=== PATIENT | male | born 2000 | race Caucasian/White ===

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

== ENCOUNTER 2021-04-13 15:31 | Emergency (ER) | payer OTHER, SELFPAY ==
[2021-04-13 15:37] VITALS: BP 144/56; PULSE 65; RESP 16; TEMP 37.2; O2SAT 100
--- NOTE | 2021-04-13 16:24 | ED.GENADUL_ITS ---
Discharge Plan Disposition Patient Disposition: HOME Condition: Stable Discharge Details Clinical Impression: Lumbago, Thoracic back sprain Primary Care Provider: Mariano Colon ED Provider: Tanya Rodriguez Home Meds and New Rx's Prescriptions: New cyclobenzaprine 10 mg tablet 10 mg PO TID PRN (Reason: muscle spasm) Qty: 10 RF: 0 lidocaine 5 % adhesive patch,medicated 1 patch topical DAILY PRN (Reason: muscle spasm) Qty: 15 RF: 0 No Action ibuprofen 200 mg capsule 200 mg PO Q6H PRNRF: 0 albuterol sulfate [ProAir HFA] 90 mcg/actuation HFA aerosol inhaler 2 puff Inhalation Q4H PRN Qty: 8.5 RF: 1 Discharge Instructions Instructions: Low Back Strain (ED), Back Pain (ED) Additional Instructions: The x-rays today show mild scoliosis, but this could be related to positioning during exam. No evidence of disc abnormality or fracture. Spine is otherwise well aligned. Urinalysis was normal. Alternate ice and heat, try massage and chiropractor. Please take tylenol and ibuprofen every 4-6 hours as needed for pain and swelling,. Use muscle relaxers as directed. return to ED for any loss of bowel or bladder control, worsening shortness of breath, fever, cough or concerns. Follow up with PCP or urgent care in 3-5 days if needed. Stand Alone Forms: School Release Referrals: Mariano Colon MD [Primary Care Provider] - 5 days Medical Decision Making 20 year old male presents with Thoracic back pain x 1 week, worse at night and associated with SOB. Reports heavy lifting 1 week ago. Has been taking Tylenol Ibuprofen and lidocaine patches with little to no relief. Denies loss of bowel or bladder control, no saddle anesthesia. No midline c-spine tenderness. UA, XR T spine and L spine ordered Norflex and Toradol IM ordered. Imaging protocol: XR of the thoracic spine. Views: 3 views. COMPARISON: No relevant prior studies available. FINDINGS: Bones/joints: Minimal dextroscoliosis of the thoracic spine centered at T4-T5. The vertebral body heights are preserved. Otherwise thoracic spine alignment is unremarkable. Soft tissues: Unremarkable. IMPRESSION: 1. No evidence of acute osseous injury of the thoracic spine. 2. Minimal dextroscoliosis of the thoracic spine centered at T4-T5. Thank you for allowing us to participate in the care of your patient. Dictated and Authenticated by: Saul Portillo MD Imaging protocol: XR of the lumbosacral spine. Views: 4 or 5 views. COMPARISON: CR XR THORACIC SPINE COMPLETE 04/13/2021 5:28 PM FINDINGS: Bones/joints: Mild levoscoliosis of the lumbar spine centered at L3-L4. The vertebral body heights are preserved. Otherwise normal alignment of the lumbar spine. No evidence of acute osseous injury of the lumbar spine. Soft tissues: Unremarkable. IMPRESSION: 1. Mild levoscoliosis of the lumbar spine centered at L3-L4. 2. No evidence of acute osseous injury of the lumbar spine. Thank you for allowing us to participate in the care of your patient. Dictated and Authenticated by: Saul Portillo MD 04/13/2021 5:51 PM Eastern Time ([place] & [place]) Discussed Xray results with patient, he verbalizes understanding. Discussed strict return instructions, verbalized understanding. Give Rx for Cyclobenazaprine and Lidocaine patches. Patient reports marked improvement after medication administration. HPI General Mode of arrival: ambulatory . Date/Time Provider Initiated Documentation: 04/13/21 15:41 . Limitations to Documentation: no limitations . Information obtained by: patient and family . HPI Narrative: 20 year old male presents with Thoracic back pain x 1 week, worse at night and associated with SOB. Reports heavy lifting 1 week ago. Has been taking Tylenol Ibuprofen and lidocaine patches with little to no relief. Denies loss of bowel or bladder control, no saddle anesthesia. No midline c-spine tenderness. Related Data Home Medications Medication Instructions Recorded Confirmed albuterol sulfate 90 mcg/actuation 2 puff INHALATION Q4H PRN #8.5 gm 03/01/19 04/13/21 aerosol inhaler ibuprofen 200 mg capsule 200 mg PO Q6H PRN 04/27/19 04/13/21 cyclobenzaprine 10 mg PO TID PRN #10 tab 04/13/21 lidocaine 1 patch TOPICAL DAILY PRN #15 ea 04/13/21 Previous Rx's Medication Instructions Recorded albuterol sulfate 90 mcg/actuation 2 puff INHALATION Q4H PRN #8.5 gm 03/01/19 aerosol inhaler cyclobenzaprine 10 mg PO TID PRN #10 tab 04/13/21 lidocaine 1 patch TOPICAL DAILY PRN #15 ea 04/13/21 Allergies Allergy/AdvReac Type Severity Reaction Status Date / Time No Known Allergies Allergy Verified 04/13/21 15:43 General Stated Complaint: Nk/Back Pain TASHA: 4 Review of Systems All systems reviewed & are unremarkable except as noted in HPI and below Constitutional Constitutional: Denies weakness ENT Ears, Nose, Mouth, and Throat: Denies dizziness, Denies neck pain and Denies disequilibrium Cardiovascular Cardiovascular: Reports dyspnea and Denies dyspnea on exertion Respiratory Respiratory: Denies cough, Reports dyspnea and Denies dyspnea on exertion Genitourinary Genitourinary: Denies difficulty urinating, Denies dysuria and Denies urinary incontinence Musculoskeletal Musculoskeletal: Reports back pain, Denies loss of height, Denies neck pain, Denies numbness, Denies radiating pain into limb, Reports stiffness and Denies tingling Neurologic Neurologic: Reports as per HPI, Denies dizziness, Denies lack of coordination, Denies numbness, Denies tingling, Denies disequilibrium and Denies weakness [facility] Medical History (Updated 04/13/21 @ 18:23 by Tanya Rodriguez) Chronic headache Exercise-induced asthma Internal derangement of left knee (03/12/19) Nocturnal enuresis Tibia fracture Surgical History Circumcision Family History Mother No problems noted. Father No problems noted. Brother No problems noted. Maternal Grandfather No problems noted. Paternal Grandfather , age 88 Heart disease Maternal Grandmother Diabetes great GM T1DM Heart disease Paternal Grandmother No problems noted. Social History Smoking/Tobacco Use Status: Former Tobacco Use Smokeless tobacco user: chewing tobacco Quit status: considering quitting Second Hand Exposure: No Smoking risk assessment performed?: Yes Alcohol Intake: former Drug use: Never Caregiver/Support person: No Household members: family Housing: house Communication Needs: None Do you need help understanding health information?: Never Pets and animals: Yes Pets and animals: dog(s) Sexually active: Yes Do you think of yourself as: straight/heterosexual Current gender identity: male What is your relationship status?: never How often do you talk on the phone with friends or family?: decline to answer How often do you get together with friends or relatives?: decline to answer How often do you attend orthodoxy or restorationist services?: decline to answer Do you belong to any clubs or organized social groups?: decline to answer Panel score (0-1 are the most socially isolated patients): 0 What type of physical activity do you participate in: none Blessing/Hoahaoism: Shinto Special blessing needs: No Seatbelt use: always Helmet use: Yes Helmet use: always Do you feel safe at home: Yes Do you feel safe in your relationship?: Yes Exam Const General: cooperative, healthy appearing, comfortable, well developed and well groomed Nutritional Appearance: average body habitus and well nourished Orientation: alert, awake and oriented x3 Neck Neck: normal visual inspection, full ROM and supple Resp Effort & Inspection: normal respiratory effort, no audible wheezes, no cough, no grunting and not labored Auscultation: clear to auscultation bilaterally Cardio Rate: abnormal rate Rhythm: abnormal rhythm Heart Sounds: S1 abnormal and S2 abnormal Back/Spine/Pelvis Back: no CVA tenderness, No mass, No erythema, No warmth and back tenderness Cervical Spine: normal cervical lordosis Thoracic/Lumbar Spine: thoracic and lumbar spine normal to inspection, thoraco- lumbar spasm, No thoracic spinal tenderness, No lumbar spinal tenderness and other (Right thoracic paraspinous tenderness noted) Pelvis: no pain with anterior-posterior compression Sacrum: no ecchymosis, no erythema, no swelling and no tenderness Coccyx: no swelling and no tenderness Extrem General: full ROM and capillary refill normal Right upper extremity: full ROM Left upper extremity: full ROM Course Vital Signs Vital signs: Vital Signs Temperature 37.2 C 04/13/21 15:37 Pulse 65 04/13/21 15:37 Respiratory Rate 16 04/13/21 15:37 Blood Pressure 144/56 H 04/13/21 15:37 Pulse Oximetry 100 04/13/21 15:37 Temperature 37.2 C 04/13/21 15:37 Temperature Source Skin 04/13/21 15:37 Pulse 65 04/13/21 15:37 Respiratory Rate 16 04/13/21 15:37 Respiratory Effort 04/13/21 15:37 Blood Pressure 144/56 H 04/13/21 15:37 Pulse Oximetry 100 04/13/21 15:37 Oxygen Delivery Method Room Air 04/13/21 15:37 Oxygen Flow Rate 0 04/13/21 15:37 Pain Level 5 04/13/21 15:37
[2021-04-13] MEDS: Orphenadrine 60 MG/2 ML VIAL IM (17:09)
[2021-04-13] MEDS: Ketorolac 60 MG/2 ML VIAL IM (17:09)
--- NOTE | 2021-04-13 17:15 | DI.RAD_ITS ---
Exam(s) XR THORACIC SPINE COMPLETE EXAM: XR THORACIC SPINE COMPLETE CLINICAL HISTORY: Back pain. TECHNIQUE: 2D digital imaging was performed. COMPARISON: No exams were available for comparison FINDINGS: There is no evidence of fracture nor listhesis in the thoracic spine. Mild scoliosis convex right in this patient also has a mild scoliosis convex left in the lumbar spine. No abnormal widening of the paraspinal lines. Mild superior endplate findings in the upper lumbar spine incidentally noted, pos sibly significant. May be chronic but correlation with site of tenderness is recommended. There are no ominous osseous lesions. IMPRESSION: DATA REPOSITORY: RADIATION DOSE DELIVERED:
--- NOTE | 2021-04-13 17:15 | DI.RAD_ITS ---
Exam(s) XR LUMBAR SPINE COMPLETE EXAM: XR LUMBAR SPINE COMPLETE CLINICAL HISTORY: Back pain. TECHNIQUE: 2D digital imaging was performed. COMPARISON: CR,XR XR THORACIC SPINE COMPLETE from 04/13/2021 CR,XR XR THORACIC SPINE COMPLETE from 04/13/2021 FINDINGS: There is no evidence of fracture or listhesis. No pars defects. On the frontal view there is a mild scoliosis in the lumbar spine which is convex left. This patient also has a mild convex right thora cic scoliosis. Of note here is the superior endplate of L2 and L3 which exhibits slight indentation but probably not acute. Correlation with site of pain recommended. IMPRESSION: Superior endplate level indentation at L2 and L3 vertebral bodies. Correlation with site of tenderne ss recommended. Mild scoliosis. DATA REPOSITORY: RADIATION DOSE DELIVERED:
[2021-04-13 17:16] LABS: Bilirubin Negative (Negative); Blood Negative (Negative); Clarity Cloudy (Clear); Glucose Negative (Negative); Ketones Negative (Negative); Leukocyte Esterase Negative (Negative); Nitrite Negative (Negative); Specific Gravity 1.025 (1.005-1.025); Urobilinogen 0.2 EU/dL (Up TO 0.2)
--- NOTE | 2021-04-13 17:53 | DI.VRAD_ITS ---
PROCEDURE INFORMATION: Exam: XR Lumbosacral Spine Exam date and time: 04/13/2021 5:16 PM Age: 20 years old Clinical indication: Other: Back pain, injury x1 week ago TECHNIQUE: Imaging protocol: XR of the lumbosacral spine. Views: 4 or 5 views. COMPARISON: CR XR THORACIC SPINE COMPLETE 04/13/2021 5:28 PM FINDINGS: Bones/joints: Mild levoscoliosis of the lumbar spine centered at L3-L4. The vertebral body heights are preserved. Otherwise normal alignment of the lumbar spine. No evidence of acute osseous injury of the lumbar spine. Soft tissues: Unremarkable. IMPRESSION: 1. Mild levoscoliosis of the lumbar spine centered at L3-L4. 2. No evidence of acute osseous injury of the lumbar spine. Dictated and Authenticated by: Saul Portillo MD. Ordering:DARIA Martínez MD
--- NOTE | 2021-04-13 17:53 | DI.VRAD_ITS ---
PROCEDURE INFORMATION: Exam: XR Thoracic Spine Exam date and time: 04/13/2021 5:16 PM Age: 20 years old Clinical indication: Other: Back pain injury x1 week ago TECHNIQUE: Imaging protocol: XR of the thoracic spine. Views: 3 views. COMPARISON: No relevant prior studies available. FINDINGS: Bones/joints: Minimal dextroscoliosis of the thoracic spine centered at T4-T5. The vertebral body heights are preserved. Otherwise thoracic spine alignment is unremarkable. Soft tissues: Unremarkable. IMPRESSION: 1. No evidence of acute osseous injury of the thoracic spine. 2. Minimal dextroscoliosis of the thoracic spine centered at T4-T5. Dictated and Authenticated by: Saul Portillo MD. Ordering:DARIA Martínez MD
== END 2021-04-13 18:30 | disposition home or self-care (01) ==
PROVIDERS: Emergency Provider Registered Nurse Emergency; PCP Family Medicine
DX: M54.50 Low back pain, unspecified (principal); S23.3XXA Sprain of ligaments of thoracic spine, initial encounter; X50.0XXA Overexertion from strenuous movement or load, initial encounter; R06.02 Shortness of breath
CPT/HCPCS: 96372; 99284; J2360; 72072; 72110; 81003; J1885

== ENCOUNTER 2021-07-02 01:15 | Outpatient (CLI) | payer OTHER, SELFPAY ==
[2021-07-03 15:10] LABS: COVID-19 RT-PCR UVMMC Result Positive (Negative)
== END 2021-07-02 01:16 | disposition home or self-care (01) ==
LOC: LBO 01:15
PROVIDERS: PCP Family Medicine; Visit Provider Family Medicine
DX: Z20.822 Contact with and (suspected) exposure to COVID-19 (principal)
CPT/HCPCS: U0003

== ENCOUNTER 2022-06-10 11:53 | Outpatient (REF) | payer OTHER, SELFPAY ==
[2022-06-10 19:56] LABS: Abs Immature Grans 0.02 10^3/uL (0.0-0.06); Absolute Basophil Count 0.02 10^3/uL (0.0-0.2); Absolute Eosinophil Count 0.08 10^3/uL (0.0-0.7); Absolute Lymphocyte Count 1.71 10^3/uL (1.2-3.4); Absolute Monocyte Count 0.28 10^3/uL (0.1-0.8); Absolute Neutrophil Count 3.06 10^3/uL (1.2-6.7); Basophils % 0.4; Eosinophils % 1.5; HCT 43.8 % (40.0-50.0); HGB 14.6 g/dL (13.5-17.5); Immature Grans % 0.4; Lymphocytes % 33.1; MCH 29.7 pg (27.0-33.0); MCHC 33.3 % (32.0-36.0); MCV 89 fL (80-95); MPV 10.5 fL (8.0-11.0); Monocytes % 5.4; Neutrophils % 59.2; Platelet Count 220 10^3/uL (130-400); RBC 4.91 10^6/uL (4.36-5.78); RDW 12.1 % (11.8-14.1); RDW-SD 39.6 fL; WBC 5.17 10^3/uL (4.4-10.8)
[2022-06-10 19:59] LABS: Anion Gap 8.3 mmol/L (3-11); BUN 16 mg/dL (7-18); CO2 27.7 mmol/L (21.0-32.0); CREATININE 0.9 mg/dL (0.70-1.30); Chloride 104 mmol/L (98-107); Estimated GFR 124.61 (mL/min/1.73m2); Glucose 100 mg/dL (74-106); Potassium 4.7 mmol/L (3.5-5.1); Sodium 140 mmol/L (136-145)
== END 2022-06-10 11:54 | disposition home or self-care (01) ==
LOC: LBN 11:53
PROVIDERS: PCP Family Medicine; Visit Provider Nurse Practitioner Family
DX: N63.15 Unspecified lump in the right breast, overlapping quadrants (principal); N64.89 Other specified disorders of breast; N64.4 Mastodynia
CPT/HCPCS: 80048; 85025

== ENCOUNTER → 2024-03-02 10:18 | Emergency (ER) | payer OTHER, SELFPAY ==
--- NOTE | 2024-03-02 10:15 | RT.EKG_ITS ---
APPROVED REPORT Exam: Resting ECG Reason for Exam: CP Patient Location: E HR:77 bpm ECG Measurements Heart Rate 77 AXIS FL 137 P 38 QRSd 88 QRS 76 QT 388 T 47 QTc 438 Conclusion Sinus rhythm, rate 77 No interval abnormalities or ectopy No STEMI No priors available for comparison
[2024-03-02 10:28] VITALS: BP 157/73; PULSE 72; RESP 18; TEMP 36.3; O2SAT 100
[2024-03-02 10:36] VITALS: RESP 10
[2024-03-02] MEDS: Acetaminophen 500 MG TAB 1000 MG PO (11:00)
[2024-03-02] MEDS: Ketorolac 15 MG/ML VIAL IM (11:01)
--- OUTSIDE RECORDS SUMMARY | 2024-03-02 11:02 | XMS_ITS | Encounter Summary ---
Author Organization [facility] Address [address] [place] [address] Care Team Providers Care Solar Panel Installer Name Role Phone Unavailable Primary Care Provider Unavailabl e Encounter Details Date Type Department Care Team (Late st Contact Info) Description 06/07/2020 Lab Requisition [facility] Pathology & [place] [address] Outr Resulting Lab, Provider Social History Tobacco Use Types Packs/Day Years Used Date Smoking Tobacco: Never Assessed Interpersonal Safety Answer Date Record ed Physically Hurt Never 06/08/2020 Verbally Threaten Not on file 06/08/2020 Sex and Gender Information Value Date Recorded Sex Assigned at Not on file Gender Identity Not on file Sexual Orientation Not on file documented as of this encounter Plan of Treatment Not on file documented as of this encounter Procedures Procedure Name Priority Date/Time Associated Diagnosis Comments ZZCOVID-19 TEST [facility] PCR Today 06/07/2020 14:00 EST COVID-19 TESTING Routine 06/07/2020 14:0 0 EST documented in this encounter Results * COVID-19 TEST [facility] PCR (06/07/2020 14:00 EST) Swab ENTIRE NASOPHARYNX / Unknown 06/07/2020 14:00 EST 06/07/2020 20:53 EST Provider Outr Resulting Lab MICROBIOLOGY - GENERAL ORDERABLES [facility] [address] [place] [address] * (ABNORMAL) COVID-19 TESTING (06/07/2020 14:00 EST) COVID-19 rt-PCR Result Positive(AA ) Negative 06/08/2020 12:00 EST [facility] Comment: This test has not been FDA cleared or approved. This test has been authorized by FDA under an EUA for use by authorized laboratories. This test has been authorized only for detection of nucleic acid from 2019-nCoV, not for any other viruses or pathogens. This test is only authorized for the duration of the declaration that circumstances exist justifying the authorization of emergency use of in vitro diagnostic tests for detection and/or diagnosis of 2019-nCoV under section 564(b)(1) of Act, 21 U.S.C ?? 360bbb-3(b) (1), unless the authorization is terminated or revoked sooner. Positive results are indicative of active infection with 2019-nCoV but do not rule out bacterial infection or co-infection with other viruses. Performed on the [employer] instrument Performing Lab [facility] 06/08/2020 12:00 EST [facility] Swab 06/07/2020 14:0 0 EST 06/07/2020 20:53 EST Provider Outr Resulting Lab MICROBIOLOGY - GENERAL ORDERABLES [facility] [address] [place] [address] documented in this encounter Visit Diagnoses Not on filedocumented in this encounter Additional Health Concerns Infection Onset Date Last Indicated Resolved Time COVID-19 06/07/2020 06/07/2020 07/07/2020 22:1 5 EST COVID-19 07/02/2021 07/02/2021 07/22/2021 22:1 5 EST documented as of this encounter
--- OUTSIDE RECORDS SUMMARY | 2024-03-02 11:02 | XMS_ITS | Encounter Summary ---
Author Organization [facility] Address [address] [place] [address] Care Team Providers Care Receptionist Secretary Name Role Phone Unavailable Primary Care Provider Unavailabl e Encounter Details Date Type Department Care Team (Late st Contact Info) Description 07/02/2021 Lab Requisition [facility] Pathology & [place] [address] Outr Resulting Lab, Provider Social History Tobacco [...] Comments ZZCOVID-19 TEST [facility] PCR Today 07/02/2021 10:16 EST COVID-19 TESTING Routine 07/02/2021 10:1 6 EST documented in this encounter Results * COVID-19 TEST [facility] PCR (07/02/2021 10:16 EST) Swab 07/02/2021 10:1 6 EST 07/02/2021 17:40 EST Provider Outr Resulting Lab MICROBIOLOGY - GENERAL ORDERABLES [facility] [address] [place] [address] * (ABNORMAL) COVID-19 TESTING (07/02/2021 10:16 EST) COVID-19 rt-PCR Result Positive( AA) Negative 07/03/2021 11:25 EST [facility] Comment: This test has not [...] the authorization is terminated or revoked sooner. Testing was performed using the luis miguel SARS-CoV-2 assay ([employer] on the Luis Miguel 6800 System Performing Lab [facility] [address] [facility] Lab 07/03/2021 11:25 EST [facility] Swab 07/02/2021 10:1 6 EST 07/02/2021 17:40 EST Provider Outr Resulting Lab MICROBIOLOGY - GENERAL ORDERABLES [facility] [address] [place] [address] documented in this encounter Visit Diagnoses Not on filedocumented in this encounter Additional Health Concerns Infection Onset Date Last Indicated Resolved Time COVID-19 07/02/2021 07/02/2021 07/22/2021 22:1 5 EST documented as of this encounter
--- OUTSIDE RECORDS SUMMARY | 2024-03-02 11:02 | XMS_ITS | Clinical Summary ---
Author Organization [facility] Address [address] [place] [address] Care Team Providers Care Organ Grinder Name Role Phone Unavailable Primary Care Provider Unavailabl e Social History Tobacco Use Types Packs/Day Years Used Date Smoking Tobacco: Never Assessed Interpersonal Safety Answer Date Record ed Physically Hurt Never 06/08/2020 Verbally Threaten Not on file 06/08/2020 Sex and Gender Information Value Date Recorded Sex Assigned at Not on file Gender Identity Not on file Sexual Orientation Not on file Plan of Treatment Health Maintenance Due Date Last Done Comments Hepatitis C Screen 2001 Hepatitis B Vaccine (1 of 3 - 19+ 3-dose series) 06/06 COVID-19 Vaccine (2022- season) 2023
--- OUTSIDE RECORDS SUMMARY | 2024-03-02 11:02 | XMS_ITS | Referral Summary ---
Author Organization [facility] Address [address] [place] [address] Care Team Providers Care Hooker Off Name Role Phone Unavailable Primary Care Provider [...] Orientation Not on file Plan of Treatment Not on file
--- NOTE | 2024-03-02 11:10 | ED.GENADUL_ITS ---
Discharge Plan Disposition Patient Disposition: Home Condition: Stable Discharge Details Clinical Impression: Chest pain in adult Primary Care Provider: Mariano Colon ED Provider: Emmy Ward Home Meds and New Rx's Prescriptions: No Action ibuprofen 200 mg capsule 200 mg PO Q6H PRN albuterol sulfate [ProAir HFA] 90 mcg/actuation HFA aerosol inhaler 2 puff Inhalation Q4H PRN Qty: 8.5 1RF Rx Instructions: Disp # 2- one for home and one for school/gym Discharge Instructions Instructions: Costochondritis Additional Instructions: You were seen in the emergency department today for evaluation of chest pain. You had an EKG that did not show sign of heart attack and a chest x-ray that was normal. You likely are experiencing pain due to a muscle or cartilage problem, should use Tylenol and ibuprofen for management of pain and follow-up with your primary care provider in the next few days to discuss any symptoms that change, worsen, or persist. You can always return to the emergency department if you have a sudden severe change or worsening of your pain, develop shortness of maria esther ath, change in responsiveness, or any other symptoms that cause you concern. Thank you for allowing us to be part of your care. HPI General Date/Time Provider Initiated Documentation: 03/02/24 10:22 . Limitations to Documentation: no limitations . Information obtained by: patient, family and old records reviewed . HPI Narrative: HPI: This is a 23-year-old male patient with a past medical history of concussion, exercise-induced asthma that does not require bronchodilator treatment, otherwise healthy presenting for evaluation of chest pain. 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 He felt like he also pulled a muscle in his shoulder at that time, and notes that the pain since then has been intermittent, coming and going and lasting several minutes at a time. He states that he has not identified any specific propagating or palliating factors, sometimes notes worsening in this pain with deep breath, but has not had any shortness of breath. He has not noticed any cough, runny or stuffy nose, nausea or vomiting, abdominal pain, and has not had any recent fevers or chills. The patient states that he tried Tylenol and ibuprofen for this pain, last dose 5 days ago, without significant improvement. The patient himself has no pertinent cardiac history, has no history of thrombo embolic disease, has no leg swelling, calf tenderness. Exam: Gen: Awake and alert, in no apparent distress HEENT: Non-icteric sclera Neck: Supple Lungs: No apparent respiratory distress, normal respiratory effort. Lung sounds clear and equal bilaterally with no wheezes, rhonchi, rales CV: Appears well perfused, heart with regular rate and rhythm, no murmurs auscultated, strong and symmetrical distal pulses, chest wall nontender to palpation and without crepitus or deformity Abdomen: Non-distended, soft MSK: Moves 4 extremities without apparent limitation in ROM Skin: Visualized skin without rashes, cyanosis. No skin changes overlying the area of chest pain Neuro: Normal Gait, no obvious focal deficits or facial asymmetry. Speaks in full, clear sentences. Psych: Appropriate for situation. MDM: This is a 23-year-old male patient presenting for evaluation of chest pain x 1 week. Differential includes but is not limited to musculoskeletal abnormalities including chest wall contusion, muscular strain, costochondritis. Certainly considered ACS including STEMI, NSTEMI, unstable angina, though the patient is very low risk by HEAR score. I considered pericarditis and myocarditis, as well as intrapulmonary abnormalities including pneumonia, pneumothorax. No evidence of fluid overload on physical examination to suggest pulmonary edema or pleural effusion, no DVT symptoms, tachycardia, or hypoxia to suggest thromboembolic disease such as PE, and he is low risk by Wells and PERC negative. No abdominal involvement to suggest esophagitis, Boerhaave syndrome, gastritis/PUD. I obtained and reviewed an EKG, which shows a normal sinus rhythm with no interval abnormality, ectopy, or evidence of ischemia. Based on her high- sensitivity troponin protocol, given his HEAR score of less than 1 he does not require laboratory studies for evaluation of his troponin. However, we will proceed with x-ray imaging of the patient's chest to evaluate for any abnormalities. I will provide the patient with Tylenol and Toradol for initial symptomatic management of pain. ED Course: I independently interpreted the patient's chest x-ray, which shows no abnormality in the lungs, osseous structures, or cardiac silhouette/mediastinum to account for his symptoms. He reports an improvement in his symptoms after Tylenol and Toradol, and at this time I am most concerned for a musculoskeletal abnormality such as costochondritis or chest wall strain. At this time, the patient has had a full medical evaluation and is safe for discharge to home. They are hemodynamically stable, ambulatory, and tolerating PO. They are understanding of the follow-up plan and return precautions. They left our facility without incident. Emmy Ward MD Related Data Home Medications ?Medication ?Instructions ?Recorded ?Confirmed albuterol sulfate 90 mcg/actuation 2 puff inhalation Q4H PRN #8.5 03/01/19 03/02/24 aerosol inhaler (ProAir HFA) grams ibuprofen 200 mg capsule 200 mg PO Q6H PRN 04/27/19 03/02/24 Previous Rx's ?Medication ?Instructions ?Recorded albuterol sulfate 90 mcg/actuation 2 puff inhalation Q4H PRN #8.5 03/01/19 aerosol inhaler (ProAir HFA) grams Allergies Allergy/AdvReac Type Severity Reaction Status Date / Time No Known Allergies Allergy Verified 03/02/24 10:30 General Stated Complaint: Chest Pain TASHA: 3 Course Vital Signs Vital signs: Vital Signs Temperature 36.3 C L 03/02/24 10:28 Pulse 72 03/02/24 10:28 Respiratory Rate 18 03/02/24 10:28 Blood Pressure 157/73 H 03/02/24 10:28 Pulse Oximetry 100 03/02/24 10:28 Temperature 36.3 C L 03/02/24 10:28 Temperature Source Temporal Artery Scan 03/02/24 10:28 Pulse 72 03/02/24 10:28 Respiratory Rate 10 L 03/02/24 10:36 Respiratory Effort Normal 03/02/24 10:36 Respiratory Depth Normal 03/02/24 10:36 Respiratory Pattern Normal 03/02/24 10:36 Blood Pressure 157/73 H 03/02/24 10:28 Blood Pressure Position Sitting 03/02/24 10:28 Pulse Oximetry 100 03/02/24 10:28 Oxygen Delivery Method Room Air 03/02/24 10:28 Oxygen Flow Rate 0 03/02/24 10:28 Pain Level 3 03/02/24 11:01 Medical Decision Making Quality:SDOH Health Related Social Needs: No Data to Display PFSH All Active Problems (Updated 03/02/24 @ 11:44 by Emmy Ward MD) Chest pain in adult (Acute) Thoracic back sprain (Acute) Lumbago (Acute) Cough in adult patient (Acute) Encounter for vaccination (Acute) Well adult exam (Acute) Sprain of posterior cruciate ligament of left knee (Acute 03/12/19) MCL sprain of left knee (Acute 03/12/19) Post concussive syndrome (Acute 06/17/14) normal brain MRI 11/2013 Exercise-induced asthma (Acute 06/17/14) Routine child health exam (Acute 10/09/15) Medical History (Updated 03/02/24 @ 11:44 by Emmy Ward MD) Internal derangement of left knee (03/12/19) Chronic headache Tibia fracture Exercise-induced asthma Nocturnal enuresis Surgical History Circumcision Family History Mother No problems noted. Father No problems noted. Brother No problems noted. Maternal Grandfather No problems noted. Paternal Grandfather , age 88 Heart disease Maternal Grandmother Diabetes great GM T1DM Heart disease Paternal Grandmother No problems noted. Social History Smoking/Tobacco Use Status: Former Tobacco Use Smokeless tobacco user: chewing tobacco Quit status: considering quitting Second Hand Exposure: No Smoking risk assessment performed?: Yes Alcohol Intake: former Drug use: Never Caregiver/Support person: No Household members: family Housing: house Communication Needs: None Do you need help understanding health information?: Never Pets and animals: Yes Pets and animals: dog(s) Sexually active: Yes Do you think of yourself as: straight/heterosexual Current gender identity: male What is your relationship status?: never How often do you talk on the phone with friends or family?: decline to answer How often do you get together with friends or relatives?: decline to answer How often do you attend congregation or methodist services?: decline to answer Do you belong to any clubs or organized social groups?: decline to answer Panel score (0-1 are the most socially isolated patients): 0 What type of physical activity do you participate in: none Blessing/Confucianist: Mormonism Special blessing needs: No Seatbelt use: always Helmet use: Yes Helmet use: always Do you feel safe at home: Yes Do you feel safe in your relationship?: Yes
--- NOTE | 2024-03-02 11:23 | DI.RAD_ITS ---
Exam(s) XR CHEST 2V PA LATERAL EXAM: XR CHEST 2V PA LATERAL CLINICAL HISTORY: L. CP. TECHNIQUE: 2D digital imaging was performed. COMPARISON: No exams were available for comparison FINDINGS: 2 views: Heart size is normal. The mediastinum is not widened. Lungs are clear. No infiltrates nor pleural effusions. IMPRESSION: No acute pulmonary findings. DATA REPOSITORY: RADIATION DOSE DELIVERED:
[2024-03-02 11:51] VITALS: BP 131/84; PULSE 68; RESP 10; O2SAT 99
== END | disposition home or self-care (01) ==
LOC: ER 11:44 → RED 11:55
PROVIDERS: Emergency Provider Emergency Medicine; PCP Family Medicine
DX: R07.9 Chest pain, unspecified (principal)
CPT/HCPCS: 93005; 96372; 99284; 71046; 93010; 99283; J1885